=== PATIENT | female | born 1960 | race Caucasian/White ===

== ENCOUNTER → 2022-12-06 | Outpatient (REF) | payer OTHER | LOC: M LAB REF 11:58 | PROVIDERS: ATTEND Internal Medicine | DX: N76.0 Acute vaginitis (principal); N95.2 Postmenopausal atrophic vaginitis ==

== ENCOUNTER 2024-05-23 06:50 | Day surgery (SDC) | payer BC ==
[~2024-05-23] VITALS: Ht 157.5 cm; Wt 53.8 kg
[~2024-05-23 06:50] MED LIST: ESTR1TAB9; MAGN250T7 PO; MOTR200T44 PO
[2024-05-23] MEDS ORDERED: LIDOCAINE 2% 100MG/5ML SDV (FOR ANES.) As Ordered ONE (06:53)
[2024-05-23] MEDS ORDERED: propofoL 200 MG/20 ML VIAL As Ordered ONE (06:53)
[2024-05-23 08:40] VITALS: BP 117/65; O2SAT 99
== END 2024-05-23 08:49 | disposition home or self-care (01) ==
LOC: M OPP 06:50
PROVIDERS: ATTEND Surgery
DX: Z12.11 Encounter for screening for malignant neoplasm of colon (principal); Z12.12 Encounter for screening for malignant neoplasm of rectum; K57.30 Diverticulosis of large intestine without perforation or abscess without bleeding